=== PATIENT | female | born 1995 | race Caucasian/White ===

== ENCOUNTER → 2024-09-19 | Outpatient (CLI) | payer BC, SELFPAY ==
[2024-09-19 16:14] LABS: Misc Send Out* See Sep Rpt
[2024-09-19 16:44] LABS: Hepatitis B Surface Ab Reactive (Immune) (Immune)
[2024-09-26 07:28] LABS: Measles Antibody (IgG) >300.00 AU/mL; Rubella Antibody (IgG) 1.03 INDEX
== END | disposition home or self-care (01) ==
LOC: COPL 15:26
PROVIDERS: PCP Nurse Practitioner Family; Referring Provider Nurse Practitioner Family; Visit Provider Nurse Practitioner Family
DX: Z01.84 Encounter for antibody response examination (principal)
CPT/HCPCS: 36415; 86706; 86735; 86762; 86765; 86787